=== PATIENT | female | born 1950 | race Caucasian/White ===

== ENCOUNTER 2021-09-01 14:00 | Outpatient (CLI) | payer MEDICARE ==
--- NOTE | 2021-09-01 15:55 | DEXA Report ---
PROCEDURE: Dexa Spine and/or Hip INDICATIONS: POST MENOPAUSAL TECHNIQUE: Dual energy x-ray absorptiometry (DXA) was performed on a Unveil System. Regions measur ed are the AP Spine, femoral neck, and if needed forearm. COMPARISON: None. FINDINGS: Spine bone mineral density is 1.378, normal. Total left hip bone mineral density is 0.876, with a T score of -1.0. This corresponds to osteopenia. Left femoral neck bone mineral density is borderline normal, 0.98, with T score of -0.9. IMPRESSION: Osteopenia. Patients with diagnosis of osteoporosis or osteopenia should have regular bone mineral density assess ment. For those eligible for Medicare, routine testing is allowed once every 2 years. Testing frequ ency can be increased for patients who have rapidly progressing disease or for those who are receivin g medical therapy to restore bone mass. Reviewed by: Levi Esteves MD on 09/01/2021 3:54 PM PST Approved by: Levi Esteves MD on 09/01/2021 3:54 PM PST Station ID: [id number]
== END 2021-09-01 14:01 | disposition home or self-care (01) ==
LOC: DI 14:00
PROVIDERS: ATTEND Internal Medicine
DX: Z78.0 Asymptomatic menopausal state (principal); M85.88 Other specified disorders of bone density and structure, other site

== ENCOUNTER 2021-09-19 11:32 | Outpatient (CLI) | payer MEDICARE ==
[2021-09-19 15:42] LABS: ALBUMIN 3.8 g/dL (3.2-5.5); ALBUMIN/GLOBULIN RATIO 1.2 (1.0-2.2); BILIRUBIN,TOTAL 0.6 mg/dL (0.2-1.0); CALCIUM 9.5 mg/dL (8.5-10.3); CREATININE 1.3 mg/dL (0.4-1.0); TOTAL PROTEIN 6.9 g/dL (6.7-8.2)
[2021-09-19 15:57] LABS: THYROID STIMULATING HORMONE 0.92 uIU/mL (0.34-5.60)
[2021-09-19 20:05] LABS: ESTIMATED AVERAGE GLUCOSE 160 mg/dL (70-100); HEMOGLOBIN A1c% 7.2 % (4.27-6.07)
== END 2021-09-19 11:33 | disposition home or self-care (01) ==
LOC: LAB.S 11:32
PROVIDERS: ATTEND Internal Medicine
DX: E11.9 Type 2 diabetes mellitus without complications (principal); E03.9 Hypothyroidism, unspecified
CPT/HCPCS: 36415; 80053; 83036; 84443

== ENCOUNTER 2022-04-16 11:21 | Outpatient (CLI) | payer MEDICARE ==
[2022-04-16 14:37] LABS: BASOPHILS # (AUTO) 0.1 10^3/uL (0.0-0.1); BASOPHILS % (AUTO) 0.7 %; EOSINOPHILS # (AUTO) 0.2 10^3/uL (0.0-0.7); EOSINOPHILS % (AUTO) 1.7 %; HCT - HEMATOCRIT 40.4 % (37.0-47.0); HGB - HEMOGLOBIN 12.9 g/dL (12.0-16.0); LYMPHOCYTES # (AUTO) 2.8 10^3/uL (1.5-3.5); LYMPHOCYTES % (AUTO) 29.4 %; MEAN CORPUSCULAR HEMOGLOBIN 27.7 pg (27.0-31.0); MEAN CORPUSCULAR HGB CONC 31.9 g/dL (32.0-36.0); MEAN CORPUSCULAR VOLUME 86.7 fL (81.0-99.0); MONOCYTES # (AUTO) 0.6 10^3/uL (0.0-1.0); NEUTROPHILS # (AUTO) 5.9 10^3/uL (1.5-6.6); NEUTROPHILS % (AUTO) 61.7 %; PLT - PLATELET COUNT 324 10^3/uL (130-450); RED BLOOD COUNT 4.66 10^6/uL (4.20-5.40); RED CELL DISTRIBUTION WIDTH 15.9 % (12.0-15.0); WHITE BLOOD COUNT 9.6 x10^3/uL (4.8-10.8)
[2022-04-16 15:07] LABS: ALBUMIN 3.8 g/dL (3.2-5.5); ALBUMIN/GLOBULIN RATIO 1.3 (1.0-2.2); ALKALINE PHOSPHATASE 66 IU/L (42-121); ALT ALANINE AMINOTRANSFERASE 13 IU/L (10-60); AST ASPARTATE AMINOTRANSFERASE 18 IU/L (10-42); BILIRUBIN,TOTAL 0.5 mg/dL (0.2-1.0); BUN - BLOOD UREA NITROGEN 18 mg/dL (6-20); CALCIUM 9.4 mg/dL (8.5-10.3); CARBON DIOXIDE - CO2 25 mmol/L (21-32); CHLORIDE 105 mmol/L (101-111); CHOL/HDL RATIO 2.4 (<4.4); CHOLESTEROL 162 mg/dL; CREATININE 1.4 mg/dL (0.4-1.0); GFR - MDRD 37 (>89); GLUCOSE 207 mg/dL (70-100); HDL CHOLESTEROL 68 mg/dL; LDL CHOLESTEROL,CALCULATED 54 mg/dL; LDL/HDL RATIO 0.8 (<4.4); POTASSIUM 4.2 mmol/L (3.5-5.0); SODIUM 140 mmol/L (135-145); TOTAL PROTEIN 6.8 g/dL (6.7-8.2); TRIGLYCERIDES 198 mg/dL; VLDL CHOLESTEROL 40 mg/dL
[2022-04-16 15:13] LABS: THYROID STIMULATING HORMONE 0.49 uIU/mL (0.34-5.60)
[2022-04-16 20:03] LABS: ESTIMATED AVERAGE GLUCOSE 169 mg/dL (70-100); HEMOGLOBIN A1c% 7.5 % (4.27-6.07)
== END 2022-04-16 11:22 | disposition home or self-care (01) ==
LOC: LAB.S 11:21
PROVIDERS: ATTEND Registered Nurse
DX: E78.5 Hyperlipidemia, unspecified (principal); Z79.899 Other long term (current) drug therapy; E11.9 Type 2 diabetes mellitus without complications; E03.9 Hypothyroidism, unspecified
CPT/HCPCS: 36415; 80053; 80061; 82043; 82570; 83036; 83721; 84443; 85025

== ENCOUNTER 2022-04-26 08:00 | Outpatient (CLI) | payer MEDICARE ==
[2022-04-26 20:08] LABS: CREATININE,URINE 110.6 mg/dL; MICROALBUM/CREATININE RATIO,UR 153.7 ug/mg (<30.0)
== END 2022-04-26 23:59 | disposition home or self-care (01) ==
LOC: LAB 08:00
PROVIDERS: ATTEND Registered Nurse
DX: E11.9 Type 2 diabetes mellitus without complications (principal)
CPT/HCPCS: 82043; 82570

== ENCOUNTER 2022-06-28 09:26 | Day surgery (SDC) | payer MEDICARE ==
[~2022-06-28 09:26] MED LIST: CYCLOPENTOLATE 1% OPHTH DROPS 2 ML ONE; KETOROLAC 0.45% OPHTH DROPS ONE; PHENYLEPHRINE 2.5% OPHTH 2 ML DROPS ONE; PROPARACAINE 0.5% OPHTH DROPS 15 ML ONE
[2022-06-28] MEDS ORDERED: LACTATED RINGERS 1,000 ML IV ONE ×2 (10:07→11:22)
--- NOTE | 2022-06-28 10:25 | ANESTHESIA ---
Pre-Anesthesia VS, & Labs - Diagnosis LEFT CATARACT - Procedure LEFT CATARACT EXTRACTION; LENS IMPLANT Vital Signs: Temp Pulse Resp BP Pulse Ox O2 Flow Rate 36.6 C 94 22 154/98 H 100 06/28/22 10:02 06/28/22 10:02 06/28/22 10:02 06/28/22 10:02 06/28/22 10:02 Height: 5 ft Weight (kg): 103 kg Body Mass Index: 44.3 BMI Classification: Morbidly Obese - NPO >8 hours - Is Patient ?: No - Lab Results Current Lab Results: Laboratory Tests 06/28/22 10:17: POC Whole Bld Glucose 191 H Home Medications and Allergies Home Medications: Ambulatory Orders Bupropion HCl [Wellbutrin Xl] 300 mg PO DAILY 06/21/22 Cholecalciferol [Vitamin D3] 50 mcg PO DAILY 06/21/22 Cyanocobalamin (Vitamin B-12) [Vitamin B-12] 1,000 mcg PO DAILY 06/21/22 Cyclobenzaprine [Flexeril] 10 mg PO TID PRN 06/21/22 Escitalopram [Lexapro] 10 mg PO DAILY 06/21/22 Hydrocodone/Acetaminophen [Hydrocodone-Acetamin 10-325 mg] 1 each PO DAILY PRN 06/21/22 Levothyroxine [Synthroid] 125 mcg PO QDAC 06/21/22 Melatonin/Pyridoxine [Melatonin 5 mg Tablet] 2.5 mg PO QPM PRN 06/21/22 Metformin HCl 1,000 mg PO DAILY 06/21/22 Pantoprazole Sodium 40 mg PO DAILY 06/21/22 Potassium Chloride [Klor-Con 10] 2 tab PO DAILY 06/21/22 Semaglutide [Ozempic] 1 mg SQ OAW 06/21/22 Simvastatin [Zocor] 40 mg PO DAILY 06/21/22 Zolpidem [Ambien] 5 mg PO HS PRN 06/21/22 miSOPROStoL [Cytotec] 100 mcg PO DAILY 06/21/22 Bupropion HCl [Wellbutrin Xl] 300 mg PO DAILY 06/21/22 Cholecalciferol [Vitamin D3] 50 mcg PO DAILY 06/21/22 Cyanocobalamin (Vitamin B-12) [Vitamin B-12] 1,000 mcg PO DAILY 06/21/22 Cyclobenzaprine [Flexeril] 10 mg PO TID PRN 06/21/22 Escitalopram [Lexapro] 10 mg PO DAILY 06/21/22 Hydrocodone/Acetaminophen [Hydrocodone-Acetamin 10-325 mg] 1 each PO DAILY PRN 06/21/22 Levothyroxine [Synthroid] 125 mcg PO QDAC 06/21/22 Melatonin/Pyridoxine [Melatonin 5 mg Tablet] 2.5 mg PO QPM PRN 06/21/22 Metformin HCl 1,000 mg PO DAILY 06/21/22 Pantoprazole Sodium 40 mg PO DAILY 06/21/22 Potassium Chloride [Klor-Con 10] 2 tab PO DAILY 06/21/22 Semaglutide [Ozempic] 1 mg SQ OAW 06/21/22 Simvastatin [Zocor] 40 mg PO DAILY 06/21/22 Zolpidem [Ambien] 5 mg PO HS PRN 06/21/22 miSOPROStoL [Cytotec] 100 mcg PO DAILY 06/21/22 Allergies/Adverse Reactions: Allergies Allergy/AdvReac Type Severity Reaction Status Date / Time No Known Drug Allergies Allergy Verified 06/21/22 15:12 Anes History & Medical History - Anesthetic History Anesthesia Complications: reports: No previous complications Family history of Anesthesia Complications: Denies Family history of Malignant Hyperthermia: Denies - Medical History Cardiovascular: reports: Hypertension, High cholesterol Pulmonary: reports: None Gastrointestinal: reports: GERD Urinary: reports: Kidney stones, Other (DIALSYSIS DURING HOSPITALIZATION IN 2007- RESOLVED. NO CRRENT DIAYLSIS REQUIRED) Neuro: reports: None Musculoskeletal: reports: Osteoarthritis Endocrine/Autoimmune: reports: Type 2 diabetes, HyPOthyroidism Blood Disorders: reports: None Skin: reports: None Smoking Status: Never smoker Psychosocial: reports: No issues indicated History of Cancer?: No - Surgical History General: reports: Cholecystectomy Eyes Ears Nose Throat (EENT): reports: Tonsil/Adenoidectomy Gynecologic: reports: Hysterectomy Exam General: Alert, Oriented x3, Cooperative, No acute distress Dental: Dentures full Upper, Dentures full Lower Mouth Openin Fingerbreadth Neck Mobility: Normal Mallampati classification: II Thyromental Distance: less than 4 cm Respiratory: Lungs clear, Normal breath sounds, No respiratory distress, No accessory muscle use Cardiovascular: Regular rate, Normal S1, Normal S2, No murmurs Mental/Cognitive Status: Alert/Oriented X3 (morbidly obeses), Normal for patient Cognitive Status: Within normal limits Plan Anesthesia Type: MAC Consent for Procedure(s) Verified and Reviewed: Yes Code Status: Attempt Resuscitation ASA classification: 2-Mild systemic disease Is this case an emergency?: No
[2022-06-28] MEDS ORDERED: BRIMONIDINE 0.2% OPHTH DROPS 5 ML OPTH ONE (11:11)
[2022-06-28] MEDS ORDERED: TIMOLOL 0.5% OPHTH DROPS OPTH ONE (11:11)
[2022-06-28] MEDS ORDERED: BSS/LIDOCAINE/EPINEPHRINE 1 ML SYRINGE IO ONE (11:11)
[2022-06-28] MEDS ORDERED: EPINEPHrine 1 MG/ML AMP IR ONE (11:11)
[2022-06-28] MEDS ORDERED: PROPARACAINE 0.5% OPHTH DROPS 15 ML EACHEYE ONE (11:12)
[2022-06-28] MEDS ORDERED: TRIAMCIN/MOXIFLOX OPHTHALMIC 0.6 ML VIAL IO ONE ×2 (11:12→13:53)
[2022-06-28] MEDS ORDERED: VANCOMYCIN OPHTH (TOPICAL) 10 MG/ML SYRINGE TOP ONE (11:12)
[2022-06-28 11:30] VITALS: BP 139/86
--- NOTE | 2022-06-28 12:03 | OPERATIVE REPORT ---
Operative Report - Other Other Information/Narrative: Date of Surgery: 06/28/22 Preop Dx: Visually significant cataract left eye. This was the first cataract surgery. Postop Dx: Same Procedure: Phacoemulsification with posterior chamber intraocular lens implant left eye Surgeon: Dr. Kaz Aguillon Anesthesia: Monitored anesthesia care Complications: None Operative Indications: This is a 71-year-old F with progressive vision loss in the left eye due to 4+ nuclear sclerotic and 3+ cortical cataract. Best corrected visual acuity was 20/40 with glare to 20/80 vision in the left eye. Indications for surgery were: - Overall decrease in vision - Difficulty driving in low light or at night - Difficulty driving at night because of headlights from other vehicles The patient was consented at length concerning the risks and benefits of cataract surgery after which the patient expressed a desire to proceed with surgery. Operative Procedure: The patient was taken into OR#3 and placed under monitored anesthesia care. A surgical time-out was conducted confirming correct patient, correct procedure, and correct surgical site. The patient was given topical anesthesia and then prepped and draped in the usual sterile fashion. The eye was entered at the 6 and 3 oclock positions. Intracameral Shugarcaine was injected into the anterior chamber followed by a dispersive viscoelastic. A continuous-tear curvilinear capsulorhexis was performed. The nucleus was hydrodissected and phacoemulsified. The cortex was evacuated using automated infusion and aspiration. A cohesive viscoelastic was injected into the capsular bag and a 22.5 diopter intraocular lens was inserted into the bag. Infusion and aspiration were used to evacuate the viscoelastic materials from the eye. The wounds were hydrated and the eye inflated to physiologic pressure using balanced salt solution. Approximately 0.25ml of a mixture of triamcinolone and moxifloxacin was injected trans-sclerally into the vitreous in the inferotemporal quadrant using a 30 gauge cannula. An additional 0.55ml of a mixture of triamcinolone and moxifloxacin was injected subconjunctivally in the superior quadrant for infection and inflammation prophylaxis. Wound integrity was checked with Weck-Paula sponges. The patient was taken from the operating room in good condition and given post-op instructions.
[2022-06-28] MEDS ORDERED: TIMOLOL 0.5% OPHTH DROPS ONE (13:53)
[2022-06-28] MEDS ORDERED: EPINEPHrine 1 MG/ML AMP ONE (13:53)
[2022-06-28] MEDS ORDERED: BSS/LIDOCAINE/EPINEPHRINE 1 ML VIAL ONE (13:53)
[2022-06-28] MEDS ORDERED: BRIMONIDINE 0.2% OPHTH DROPS 5 ML ONE (13:53)
[2022-06-28] MEDS ORDERED: VANCOMYCIN OPHTH (TOPICAL) 10 MG/ML SYRINGE ONE (13:53)
--- NOTE | 2022-06-28 14:00 | ANESTHESIA POST OP EVALUATION ---
Anesthesia Post Eval - Post Anesthesia Eval Vitals: Last Vital Signs Temp 36.8 C 06/28/22 11:23 Pulse 91 06/28/22 11:29 Resp 16 06/28/22 11:29 BP 139/86 H 06/28/22 11:29 Pulse Ox 98 06/28/22 11:29 O2 Flow Rate CV Function Including HR & BP: Stable Pain Control: Satisfactory Nausea & Vomiting: Negative Mental Status: Baseline Respiratory Status: Airway Patent Hydration Status: Satisfactory Anesthesia Complications: None
== END 2022-06-28 09:27 | disposition home or self-care (01) ==
LOC: SDS 09:26
PROVIDERS: ATTEND Ophthalmology
DX: E11.36 Type 2 diabetes mellitus with diabetic cataract (principal); H25.812 Combined forms of age-related cataract, left eye; Z79.85 Long-term (current) use of injectable non-insulin antidiabetic drugs; Z79.84 Long term (current) use of oral hypoglycemic drugs; E03.9 Hypothyroidism, unspecified; F41.9 Anxiety disorder, unspecified; E66.01 Morbid (severe) obesity due to excess calories; Z68.41 Body mass index [BMI] 40.0-44.9, adult
CPT/HCPCS: 66984; A9270; J3490; J7120

== ENCOUNTER 2022-10-09 12:34 | Outpatient (CLI) | payer MEDICARE ==
[2022-10-09 14:42] LABS: CALCIUM 9.6 mg/dL (8.5-10.3); CREATININE 1.6 mg/dL (0.4-1.0); POTASSIUM 5.3 mmol/L (3.5-5.0)
[2022-10-09 14:56] LABS: ESTIMATED AVERAGE GLUCOSE 189 mg/dL (70-100); HEMOGLOBIN A1c% 8.2 % (4.27-6.07)
== END 2022-10-09 12:35 | disposition home or self-care (01) ==
LOC: LAB.S 12:34
PROVIDERS: ATTEND Registered Nurse
DX: E11.9 Type 2 diabetes mellitus without complications (principal)
CPT/HCPCS: 36415; 80048; 83036

== ENCOUNTER 2022-11-19 11:26 | Outpatient (CLI) | payer MEDICARE ==
--- NOTE | 2022-11-19 20:27 | XRAY Report ---
PROCEDURE: Knee 2 View LT INDICATIONS: OSTEOARTHRITIS OF KNEE TECHNIQUE: 2 views of the left knee(s) were acquired. COMPARISON: None. FINDINGS: Bones: No fractures or dislocations. No suspicious bony lesions. Definite osteophytes and possibl e narrowing of joint space. These changes affect the tibiofemoral compartments. Degenerative changes also likely present of the patellofemoral compartment but not well evaluated on included views. Soft tissues: Mild knee joint effusion. Vascular calcifications are present. IMPRESSION: No acute bony abnormality. At least bicompartmental degenerative changes, likely tricompartmental. Kellgren-Denis scale of os teoarthritis: Grade 1-2: mild osteoarthritis. Reviewed by: Surinder Tay MD on 11/19/2022 8:25 PM PDT Approved by: Surinder Tay MD on 11/19/2022 8:25 PM PDT Station ID: [id number]
--- NOTE | 2022-11-19 20:29 | XRAY Report ---
PROCEDURE: Knee 2 View RT INDICATIONS: OSTEOARTHRITIS OF KNEE TECHNIQUE: 2 views of the right knee(s) were acquired. COMPARISON: None. FINDINGS: Bones: No acute fractures or dislocations. Corticated bony fragment adjacent to the medial femoral c ondyle may represent sequela of prior fracture or MCL injury. Large osteophytes, marked narrowing o f joint space, severe sclerosis and definite deformity of bone. This primarily affects the medial com partment of the knee, however at least moderate degenerative changes of the lateral compartment also demonstrated and patellofemoral compartment degenerative changes are present but not well evaluated o n included views. Soft tissues: No knee joint effusion. Vascular calcifications are present. IMPRESSION: No acute bony abnormality. Tricompartmental degenerative changes of the knee. Degenerative changes are worst at the medial jyoti rtment. Kellgren-Denis scale of osteoarthritis: Grade 4: severe osteoarthritis. Reviewed by: Surinder Tay MD on 11/19/2022 8:28 PM PDT Approved by: Surinder Tay MD on 11/19/2022 8:28 PM PDT Station ID: [id number]
== END 2022-11-19 11:27 | disposition home or self-care (01) ==
LOC: DI.S 11:26
PROVIDERS: ATTEND Physician Assistant
DX: M17.0 Bilateral primary osteoarthritis of knee (principal)

== ENCOUNTER 2022-11-27 12:54 | Outpatient (CLI) | payer MEDICARE ==
--- NOTE | 2022-11-28 10:53 | Mammography Report ---
BILATERAL DIGITAL SCREENING MAMMOGRAM 3D/2D: 11/27/2022 CLINICAL: Routine screening. Family history of breast cancer. No prior exams were available for comparison. There are scattered areas of fibroglandular density in both breasts (category b / 25%-50% glandular t issue). There is a 0.7 cm irregular equal density focal asymmetry in the left breast at 2 o'clock middle dept h. There is architectural distortion associated with the focal asymmetry. No other significant masses, calcifications, or other findings are seen in either breast. IMPRESSION: INCOMPLETE: NEEDS ADDITIONAL IMAGING EVALUATION The 0.7 cm irregular equal density focal asymmetry in the left breast is indeterminate. Additional v iews with possible ultrasound are recommended. Based on the Tyrer Cuzick model (a risk assessment model) the patients lifetime risk is 4.0% and her 10 year risk is 2.8%. According to the ACR, ACS, and NCCN guidelines, an annual breast MRI exam angle g with mammogram is recommended if the patients lifetime risk is 20% or greater. This exam was interpreted at Station ID: [id number]. NOTE: For mammograms, a report in lay terms will be sent to the patient. Approximately 15% of breast malignancies will not be visualized mammographically. In the management of a palpable breast mass, a negative mammogram must not discourage biopsy of a clinically suspicious lesion. Electronically Signed By: Rigoberto Prado M.D. aty/:11/27/2022 14:24:03 ACR BI-RADS Category 0: Incomplete 3340F PARENCHYMAL PATTERN: (A) - The breast(s) demonstrate(s) scattered fibroglandular densities. BI-RADS CATEGORY: (0) - 0 Mammo and [place] [id number] Immediate follow-up LATERALITY: (L)
== END 2022-11-27 12:55 | disposition home or self-care (01) ==
LOC: DI.S 12:54
PROVIDERS: ATTEND Registered Nurse
DX: Z12.31 Encounter for screening mammogram for malignant neoplasm of breast (principal); R92.8 Other abnormal and inconclusive findings on diagnostic imaging of breast; Z80.3 Family history of malignant neoplasm of breast

== ENCOUNTER 2022-12-04 11:48 | Outpatient (CLI) | payer MEDICARE ==
[2022-12-04 14:23] LABS: BASOPHILS # (AUTO) 0.1 10^3/uL (0.0-0.1); BASOPHILS % (AUTO) 0.9 %; EOSINOPHILS # (AUTO) 0.2 10^3/uL (0.0-0.7); EOSINOPHILS % (AUTO) 1.5 %; HCT - HEMATOCRIT 39.8 % (37.0-47.0); HGB - HEMOGLOBIN 12.1 g/dL (12.0-16.0); LYMPHOCYTES # (AUTO) 3.1 10^3/uL (1.5-3.5); LYMPHOCYTES % (AUTO) 31.4 %; MEAN CORPUSCULAR HEMOGLOBIN 27.4 pg (27.0-31.0); MEAN CORPUSCULAR HGB CONC 30.4 g/dL (32.0-36.0); MONOCYTES # (AUTO) 0.8 10^3/uL (0.0-1.0); MONOCYTES % (AUTO) 7.8 %; NEUTROPHILS # (AUTO) 5.7 10^3/uL (1.5-6.6); NEUTROPHILS % (AUTO) 57.6 %; PLT - PLATELET COUNT 321 10^3/uL (130-450); RED BLOOD COUNT 4.42 10^6/uL (4.20-5.40); RED CELL DISTRIBUTION WIDTH 15.2 % (12.0-15.0); WHITE BLOOD COUNT 9.8 x10^3/uL (4.8-10.8)
== END 2022-12-04 11:49 | disposition home or self-care (01) ==
LOC: LAB.S 11:48
PROVIDERS: ATTEND Internal Medicine Nephrology
DX: D70.9 Neutropenia, unspecified (principal); E83.30 Disorder of phosphorus metabolism, unspecified; N25.81 Secondary hyperparathyroidism of renal origin; R80.9 Proteinuria, unspecified; D64.9 Anemia, unspecified; D63.1 Anemia in chronic kidney disease
CPT/HCPCS: 36415; 82570; 82607; 83970; 84100; 84156; 85025

== ENCOUNTER 2023-01-17 12:18 | Outpatient (CLI) | payer MEDICARE ==
--- NOTE | 2023-01-18 09:45 | Mammography Report ---
UNILATERAL LEFT DIGITAL DIAGNOSTIC MAMMOGRAM 3D/2D: 01/17/2023 CLINICAL: Patient returns today to evaluate a focal asymmetry in the left breast. Comparison is made to exams dated: 05/09/2020 mammogram, 06/27/2018 mammogram, and 06/25/2017 mammogra m - [place]. There are scattered areas of fibroglandular density in the left breast (category b / 25%-50% glandula r tissue). There is a 0.7 cm irregular equal density focal asymmetry in the left breast at 2 o'clock middle dept h. There is architectural distortion associated with the focal asymmetry. No other significant masses or calcifications are seen in the breast. IMPRESSION: INCOMPLETE: NEEDS ADDITIONAL IMAGING EVALUATION The 0.7 cm irregular equal density focal asymmetry in the left breast is indeterminate. A targeted ultrasound is recommended and will immediately follow. Based on the Tyrer Cuzick model (a risk assessment model) the patients lifetime risk is 3.8% and her 10 year risk is 2.8%. According to the ACR, ACS, and NCCN guidelines, an annual breast MRI exam angle g with mammogram is recommended if the patients lifetime risk is 20% or greater. This exam was interpreted at Station ID: [id number]. NOTE: For mammograms, a report in lay terms will be sent to the patient. Approximately 15% of breast malignancies will not be visualized mammographically. In the management of a palpable breast mass, a negative mammogram must not discourage biopsy of a clinically suspicious lesion. Electronically Signed By: Don Smith M.D. slc/:01/17/2023 13:32:45 ACR BI-RADS Category 0: Incomplete 3340F PARENCHYMAL PATTERN: (A) - The breast(s) demonstrate(s) scattered fibroglandular densities. BI-RADS CATEGORY: (0) - 0 Ultrasound [id number] Immediate follow-up LATERALITY: (B)
--- NOTE | 2023-01-18 09:45 | Ultrasound Report ---
LIMITED ULTRASOUND OF LEFT BREAST AND AXILLA: 01/17/2023 CLINICAL: Patient returns today to evaluate a focal asymmetry in the left breast. Comparison is made to exams dated: 01/17/2023 mammogram, 11/27/2022 mammogram - [facility], 05/09/2020 mammogram, 06/27/2018 mammogram, 06/28/2017 mammogram, and 06/25/2017 mammogram - [facility]. Color flow and real-time ultrasound of the left breast 2 o'clock, and axilla regions were performed. Bautista scale images of the real-time examination were reviewed. There is a 0.7 cm x 0.6 cm x 0.5 cm irregular mass with a spiculated margin in the left breast at 2 o 'clock middle depth 12 cm from the nipple. This irregular mass is hypoechoic with posterior acoustic shadowing. This correlates with mammography findings. Color flow imaging demonstrates that there i s an adjacent vascularity. No significant abnormalities were seen sonographically in the left axilla. IMPRESSION: SUSPICIOUS OF MALIGNANCY The 0.7 cm x 0.6 cm x 0.5 cm irregular mass in the left breast is at a high suspicion for malignancy. An ultrasound guided biopsy is recommended. No enlarged left axillary lymph nodes. Exam findings were discussed with the patient by Dr. Tay. This exam was interpreted at Station ID: [id number]. Electronically Signed By: Don Smith M.D. slc/:01/17/2023 13:46:46 Ultrasound BI-RADS: 4c High suspicion of malignancy BI-RADS CATEGORY: (4c) - High Susp Biopsy [id number] Immediate follow-up LATERALITY: (L)
== END 2023-01-17 12:19 | disposition home or self-care (01) ==
LOC: DI 12:18
PROVIDERS: ATTEND Registered Nurse
DX: N63.21 Unspecified lump in the left breast, upper outer quadrant (principal)

== ENCOUNTER 2023-02-04 11:37 | Outpatient (CLI) | payer MEDICARE ==
[2023-02-04] MEDS ORDERED: LIDOCAINE 1%-EPI 1:100000 20 ML MDV ONE (12:10)
[2023-02-04] MEDS ORDERED: LIDOCAINE-MPF 1% 5 ML VIAL ONE (12:10)
[2023-02-04] MEDS ORDERED: LIDOCAINE-MPF 1% 5 ML VIAL TD ONE (13:51)
[2023-02-04] MEDS ORDERED: LIDOCAINE 1%-EPI 1:100000 20 ML MDV SUBQ ONE (13:52)
--- NOTE | 2023-02-05 10:21 | Mammography Report ---
UNILATERAL LEFT DIGITAL DIAGNOSTIC MAMMOGRAM POST-PROCEDURE IMAGING FOR MARKER PLACEMENT: 02/04/2023 CLINICAL: Post left breast ultrasound biopsy clip placement imaging. Comparison is made to exams dated: 01/17/2023 mammogram, [facility] and 05/09/2020 [facility] - [place]. There are scattered areas of fibroglandular density in the left breast (category b / 25%-50% glandula r tissue). There is a marker clip in the appropriate position in the left breast at 2 o'clock middle depth. The re is a biopsy clip and architectural distortion associated with the focal asymmetry. IMPRESSION: POST PROCEDURE MAMMOGRAM FOR MARKER PLACEMENT There was a successful marker clip placement in the left breast middle depth. Based on the Tyrer Cuzick model (a risk assessment model) the patients lifetime risk is 3.8% and her 10 year risk is 2.8%. According to the ACR, ACS, and NCCN guidelines, an annual breast MRI exam angle g with mammogram is recommended if the patients lifetime risk is 20% or greater. This exam was interpreted at Station ID: [id number]. NOTE: For mammograms, a report in lay terms will be sent to the patient. Approximately 15% of breast malignancies will not be visualized mammographically. In the management of a palpable breast mass, a negative mammogram must not discourage biopsy of a clinically suspicious lesion. Electronically Signed By: Dr. Surinder Tay M.D. an/:02/04/2023 13:26:48 ACR BI-RADS Category Post-procedure mammogram for marker placement PARENCHYMAL PATTERN: (A) - The breast(s) demonstrate(s) scattered fibroglandular densities. BI-RADS CATEGORY: () - Unspecified - other recall n/a LATERALITY: (B)
--- NOTE | 2023-02-06 10:23 | Ultrasound Report ---
ULTRASOUND GUIDED BIOPSY LEFT BREAST USING VACUUM DEVICE WITH MARKING DEVICE INSERTED: 02/04/2023 CLINICAL: Left breast mass. PATIENT CONSENT: Risks (minor bleeding, infection, vasovagal reaction and repeat procedure), benefits and alternatives were explained to the patient and written informed consent was obtained. Correlation is made to exams dated: 01/17/2023 ultrasound, 01/17/2023 mammogram, 11/27/2022 mammogram - [facility], 05/09/2020 mammogram, 06/27/2018 mammogram, and 09/26/2017 ultrasound - [facility]. An ultrasound guided biopsy using real-time ultrasound was performed for the 0.7 cm x 0.6 cm x 0.5 cm mass located in the left breast at 2 o'clock middle depth 12 cm from the nipple. This was described on the previous ultrasound report. The skin was prepped in the usual manner. Local anesthetic was administered to the access site. The abnormality was approached from the lateral aspect. A biopsy n eedle was placed adjacent to the abnormality under ultrasound guidance. Once the needle was document ed to be in the correct location, three passes were made using the Mammotome biopsy system. A clip w as inserted into the biopsy cavity. The specimens were sent to the laboratory for pathological yakelin sis. IMPRESSION: ULTRASOUND GUIDED BIOPSY MALIGNANT Ultrasound guided biopsy of the 0.7 cm x 0.6 cm x 0.5 cm mass in the left breast at 2 o'clock middle depth 12 cm from the nipple was successful. Pathology indicates malignant invasive ductal carcinoma (ID). Pathology results are concordant with imaging findings. Oncologic/surgical followup recommend ed. This exam was interpreted at Station ID: [id number]. Dr. Surinder gonzalez,lc/:02/06/2023 10:03:31 BI-RADS CATEGORY: () - Unspecified - other recall n/a LATERALITY: (B)
== END 2023-02-04 11:38 | disposition home or self-care (01) ==
LOC: DI 11:37
PROVIDERS: ATTEND Registered Nurse
DX: C50.412 Malignant neoplasm of upper-outer quadrant of left female breast (principal); Z17.0 Estrogen receptor positive status [ER+]
CPT/HCPCS: 19083

== ENCOUNTER 2023-02-14 06:58 | Day surgery (SDC) | payer MEDICARE ==
[2023-02-14] MEDS: PROPARACAINE 0.5% OPHTH DROPS 15 ML ONE (07:22)
[2023-02-14] MEDS: KETOROLAC 0.45% OPHTH DROPS ONE (07:22)
[2023-02-14] MEDS: CYCLOPENTOLATE 1% OPHTH DROPS 2 ML ONE (07:22)
[2023-02-14] MEDS: PHENYLEPHRINE 2.5% OPHTH 2 ML DROPS ONE (07:23)
[2023-02-14] MEDS: LACTATED RINGERS 1,000 ML IV ONE ×2 (07:32→08:18)
[2023-02-14] MEDS ORDERED: fentaNYL 100 MCG/2 ML VIAL ONE (07:38)
[2023-02-14] MEDS ORDERED: MIDAZOLAM 2 MG/2 ML VIAL ONE (07:38)
[2023-02-14] MEDS ORDERED: EPINEPHrine 1 MG/ML AMP ONE (07:43)
[2023-02-14] MEDS ORDERED: BRIMONIDINE 0.2% OPHTH DROPS 5 ML ONE (07:43)
[2023-02-14] MEDS ORDERED: TIMOLOL 0.5% OPHTH DROPS ONE (07:43)
[2023-02-14] MEDS ORDERED: TRIAMCIN/MOXIFLOX OPHTHALMIC 0.6 ML VIAL IO ONE (07:43)
[2023-02-14] MEDS ORDERED: BSS/LIDOCAINE/EPINEPHRINE 1 ML VIAL ONE (07:44)
--- NOTE | 2023-02-14 07:49 | ANESTHESIA ---
Pre-Anesthesia VS, & Labs - Diagnosis right eye senile combined cataract - Procedure right eye cataract extraction with IOL implant Vital Signs: Temp Pulse Resp BP Pulse Ox O2 Flow Rate 36.8 C 87 16 158/68 H 95 0 02/14/23 07:14 02/14/23 07:14 02/14/23 07:14 02/14/23 07:14 02/14/23 07:14 02/14/23 07:14 Height: 5 ft Weight (kg): 105 kg Body Mass Index: 45.2 BMI Classification: Morbidly Obese - NPO >8 hours - Is Patient ?: No - Lab Results Current Lab Results: Laboratory Tests 02/14/23 07:30: POC Whole Bld Glucose 238 H Lab results reviewed: Yes Home Medications and Allergies Cholecalciferol [Vitamin D3] 50 mcg PO DAILY 06/21/22 Cyanocobalamin (Vitamin B-12) [Vitamin B-12] 1,000 mcg PO DAILY 06/21/22 Cyclobenzaprine [Flexeril] 10 mg PO TID PRN 06/21/22 Escitalopram [Lexapro] 10 mg PO DAILY 06/21/22 Hydrocodone/Acetaminophen [Hydrocodone-Acetamin 10-325 mg] 1 each PO DAILY PRN 06/21/22 Levothyroxine [Synthroid] 125 mcg PO QDAC 06/21/22 Melatonin/Pyridoxine [Melatonin 5 mg Tablet] 2.5 mg PO QPM PRN 06/21/22 Metformin HCl 1,000 mg PO DAILY 06/21/22 Pantoprazole Sodium 40 mg PO DAILY 06/21/22 Simvastatin [Zocor] 40 mg PO DAILY 06/21/22 Zolpidem [Ambien] 5 mg PO HS PRN 06/21/22 buPROPion HCL [Wellbutrin Xl] 300 mg PO DAILY 06/21/22 miSOPROStoL [Cytotec] 100 mcg PO DAILY 06/21/22 Allergies/Adverse Reactions: Allergies Allergy/AdvReac Type Severity Reaction Status Date / Time No Known Drug Allergies Allergy Verified 02/13/23 11:56 Anes History & Medical History - Anesthetic History Anesthesia Complications: reports: No previous complications - Medical History Cardiovascular: reports: Hypertension, High cholesterol Pulmonary: reports: None Gastrointestinal: reports: GERD Urinary: reports: Kidney stones, Other Neuro: reports: None Musculoskeletal: reports: Osteoarthritis Endocrine/Autoimmune: reports: Type 2 diabetes, HyPOthyroidism Blood Disorders: reports: None Skin: reports: None Smoking Status: Never smoker Psychosocial: reports: No issues indicated History of Cancer?: Yes (recent positive breast cancer biopsy) - Surgical History General: reports: Cholecystectomy Eyes Ears Nose Throat (EENT): reports: Tonsil/Adenoidectomy Gynecologic: reports: Hysterectomy Exam General: Alert, Oriented x3, Cooperative, No acute distress Dental: Dentures full Upper, Dentures full Lower Mouth Openin Fingerbreadth Neck Mobility: Normal Mallampati classification: II Thyromental Distance: 4-6 cm Mental/Cognitive Status: Alert/Oriented X3, Normal for patient Plan Anesthesia Type: MAC Consent for Procedure(s) Verified and Reviewed: Yes Code Status: Attempt Resuscitation ASA classification: 3-Severe systemic disease Is this case an emergency?: No
[2023-02-14] MEDS: TIMOLOL 0.5% OPHTH DROPS OPTH ONE (08:05)
[2023-02-14] MEDS: BRIMONIDINE 0.2% OPHTH DROPS 5 ML OPTH ONE (08:05)
[2023-02-14] MEDS: EPINEPHrine 1 MG/ML AMP IR ONE (08:05)
[2023-02-14] MEDS: BSS/LIDOCAINE/EPINEPHRINE 1 ML SYRINGE IO ONE (08:06)
[2023-02-14] MEDS: VANCOMYCIN OPHTH (TOPICAL) 10 MG/ML SYRINGE RIGHTEYE ONE (08:07)
[2023-02-14] MEDS: TRIAMCIN/MOXIFLOX OPHTHALMIC 0.6 ML VIAL IO ONE (08:07)
[2023-02-14] MEDS: PROPARACAINE 0.5% OPHTH DROPS 15 ML RIGHTEYE ONE (08:07)
--- NOTE | 2023-02-14 08:25 | OPERATIVE REPORT ---
Operative Report - Other Other Information/Narrative: Date of Surgery: 02/14/23 Preop Dx: Visually significant cataract right eye. Cataract surgery was performed in the left eye on . Postop Dx: Same Procedure: Phacoemulsification with posterior chamber intraocular lens implant right eye Surgeon: Dr. Kaz Aguillon Anesthesia: Monitored anesthesia care Complications: None Operative Indications: This is a 72-year-old F with progressive vision loss in the right eye due to 4+ nuclear sclerotic and 2-3+ cortical cataract. Best corrected visual acuity was 20/40 with glare to 20/100 vision in the right eye. Indications for surgery were: - Difficulty seeing words on a computer screen - Difficulty reading - Difficulty seeing words, closed captions, or game scores on TV - Difficulty driving in low light or at night - Difficulty driving at night because of headlights from other vehicles - Difficulty with glare or bright lights in any situation The patient was consented at length concerning the risks and benefits of cataract surgery after which the patient expressed a desire to proceed with surgery. Operative Procedure: The patient was taken into OR#3 and placed under monitored anesthesia care. A surgical time-out was conducted confirming correct patient, correct procedure, and correct surgical site. The patient was given topical anesthesia and then prepped and draped in the usual sterile fashion. The eye was entered at the 6 and 3 oclock positions. Intracameral Shugarcaine was injected into the anterior chamber followed by a dispersive viscoelastic. A continuous-tear curvilinear capsulorhexis was performed. The nucleus was hydrodissected and phacoemulsified. The cortex was evacuated using automated infusion and aspiration. A cohesive viscoelastic was injected into the capsular bag and a 23.5 diopter intraocular lens was inserted into the bag. Infusion and aspiration were used to evacuate the viscoelastic materials from the eye. The wounds were hydrated and the eye inflated to physiologic pressure using balanced salt solution. Approximately 0.25ml of a mixture of triamcinolone and moxifloxacin was injected trans-sclerally into the vitreous in the inferotemporal quadrant using a 30 gauge cannula. An additional 0.25ml of a mixture of triamcinolone and moxifloxacin was injected subconjunctivally in the superior quadrant for infection and inflammation prophylaxis. Wound integrity was checked with Weck-Paula sponges. The patient was taken from the operating room in good condition and given post-op instructions.
[2023-02-14 08:44] VITALS: BP 134/76
--- NOTE | 2023-02-14 09:29 | ANESTHESIA POST OP EVALUATION ---
Anesthesia Post Eval - Post Anesthesia Eval Vitals: Last Vital Signs Temp 36.4 C L 02/14/23 08:35 Pulse 76 02/14/23 08:35 Resp 16 02/14/23 08:35 BP 134/76 H 02/14/23 08:35 Pulse Ox 99 02/14/23 08:35 O2 Flow Rate 0 02/14/23 07:14 CV Function Including HR & BP: Stable Pain Control: Satisfactory Nausea & Vomiting: Negative Mental Status: Baseline Respiratory Status: Airway Patent Hydration Status: Satisfactory Anesthesia Complications: None
== END 2023-02-14 06:59 | disposition home or self-care (01) ==
LOC: SDS 06:58
PROVIDERS: ATTEND Ophthalmology
DX: E11.36 Type 2 diabetes mellitus with diabetic cataract (principal); H25.811 Combined forms of age-related cataract, right eye; Z79.84 Long term (current) use of oral hypoglycemic drugs; Z98.42 Cataract extraction status, left eye; E66.01 Morbid (severe) obesity due to excess calories; Z68.42 Body mass index [BMI] 45.0-49.9, adult; I10 Essential (primary) hypertension

== ENCOUNTER 2023-05-13 07:51 | Day surgery (SDC) | payer MEDICARE ==
[2023-05-13] MEDS ORDERED: LIDOCAINE-MPF 1% 5 ML VIAL ONE (08:12)
[2023-05-13] MEDS ORDERED: LIDOCAINE 1%-EPI 1:100000 50 ML VIAL ONE (08:12)
[2023-05-13] MEDS ORDERED: ceFAZolin 2 GM VIAL ONE (08:38)
[2023-05-13] MEDS ORDERED: ACETAMINOPHEN 500 MG TABLET PO ONE (08:38)
[2023-05-13] MEDS ORDERED: fentaNYL 100 MCG/2 ML VIAL ONE (09:32)
[2023-05-13] MEDS ORDERED: PROPOFOL 500 MG/50 ML 500 MG/50 ML VIAL ONE (09:32)
[2023-05-13] MEDS ORDERED: LACTATED RINGERS 1,000 ML IV ONE ×2 (10:26→11:48)
[2023-05-13] MEDS ORDERED: LIDOCAINE 1%-EPI 1:100000 20 ML MDV ONE (10:31)
[2023-05-13] MEDS ORDERED: BUPIVACAINE 0.5% PF 10 ML VIAL ONE (10:32)
[2023-05-13] MEDS ORDERED: SUCCINYLCHOLINE 200 MG/10 ML VIAL ONE (10:40)
[2023-05-13] MEDS ORDERED: PHENYLEPHRINE HCL 0.5 MG/5 ML AMPULE ONE ×2 (11:08→11:29)
[2023-05-13] MEDS ORDERED: ePHEDrine 50 MG/ML VIAL IVP ONE (11:08)
[2023-05-13] MEDS ORDERED: BUPIVACAINE 0.5% PF 10 ML VIAL SUBQ ONE (11:10)
[2023-05-13] MEDS ORDERED: LIDOCAINE 2%-EPI 1:100000 20 ML MDV SUBQ ONE (11:11)
[2023-05-13] MEDS ORDERED: HYDROmorphone 0.5 MG/0.5 ML SYRINGE IVP PRN ×2 (11:13→11:40)
[2023-05-13] MEDS ORDERED: ATROPINE ABBOJECT 1 MG/10 ML SYRINGE IVP PRN (11:13)
[2023-05-13] MEDS ORDERED: ONDANSETRON 4 MG/2 ML VIAL IVP PRN ×2 (11:13→11:40)
[2023-05-13] MEDS ORDERED: ePHEDrine 50 MG/ML VIAL IVP PRN (11:13)
[2023-05-13] MEDS ORDERED: NALOXONE 0.4 MG/ML VIAL IVP PRN (11:13)
[2023-05-13] MEDS ORDERED: fentaNYL 100 MCG/2 ML VIAL IVP PRN (11:13)
--- NOTE | 2023-05-13 11:13 | ANESTHESIA ---
Pre-Anesthesia VS, & Labs - Diagnosis L DCIS - Procedure L breast lumpectomy Vital Signs: Temp Pulse Resp BP Pulse Ox O2 Flow Rate 36.8 C 91 16 136/65 H 94 0 05/13/23 08:29 05/13/23 08:29 05/13/23 08:29 05/13/23 10:27 05/13/23 08:29 05/13/23 08:29 Height: 5 ft Weight (kg): 104.2 kg Body Mass Index: 44.9 BMI Classification: Morbidly Obese - NPO >8 hours - Is Patient ?: No - Lab Results Current Lab Results: Laboratory Tests 05/13/23 08:37: POC Whole Bld Glucose 207 H Lab results reviewed: Yes Home Medications and Allergies Home Medications: Ambulatory Orders Liraglutide [Victoza 2-Wali] 1.8 mg SUBQ DAILY 05/03/23 glipiZIDE [Glipizide ER] 2.5 mg PO DAILY 05/03/23 Cholecalciferol [Vitamin D3] 25 mcg PO DAILY 06/21/22 Cyanocobalamin (Vitamin B-12) [Vitamin B-12] 1,000 mcg PO DAILY 06/21/22 Cyclobenzaprine [Flexeril] 10 mg PO TID PRN 06/21/22 Escitalopram [Lexapro] 10 mg PO DAILY 06/21/22 Hydrocodone/Acetaminophen [Hydrocodone-Acetamin 10-325 mg] 1 each PO DAILY PRN 06/21/22 Levothyroxine [Synthroid] 125 mcg PO QDAC 06/21/22 Metformin HCl 1,000 mg PO DAILY 06/21/22 Pantoprazole Sodium 40 mg PO DAILY 06/21/22 Simvastatin [Zocor] 40 mg PO DAILY 06/21/22 Zolpidem [Ambien] 5 mg PO HS PRN 06/21/22 buPROPion HCL [Wellbutrin Xl] 300 mg PO DAILY 06/21/22 miSOPROStoL [Cytotec] 100 mcg PO DAILY 06/21/22 Lisinopril [Zestril] 20 mg PO DAILY 03/22/23 Liraglutide [Victoza 2-Wali] 1.8 mg SUBQ DAILY 05/03/23 glipiZIDE [Glipizide ER] 2.5 mg PO DAILY 05/03/23 Allergies/Adverse Reactions: Allergies Allergy/AdvReac Type Severity Reaction Status Date / Time No Known Drug Allergies Allergy Verified 02/13/23 11:56 Anes History & Medical History - Anesthetic History Anesthesia Complications: reports: No previous complications Family history of Anesthesia Complications: Denies Family history of Malignant Hyperthermia: Denies - Medical History Cardiovascular: reports: Hypertension, High cholesterol Pulmonary: reports: None Gastrointestinal: reports: GERD (w/c) Urinary: reports: Kidney stones Neuro: reports: None Musculoskeletal: reports: Osteoarthritis Endocrine/Autoimmune: reports: Type 2 diabetes, HyPOthyroidism Blood Disorders: reports: None Skin: reports: None Smoking Status: Never smoker Psychosocial: reports: No issues indicated - Surgical History General: reports: Cholecystectomy, Colonoscopy, EGD Eyes Ears Nose Throat (EENT): reports: Cataracts, Tonsil/Adenoidectomy Urologic: reports: Ureterolithotomy (stones) Gynecologic: reports: Hysterectomy, Oophrectomy Exam General: Alert, Oriented x3, Cooperative Dental: Dentures full Upper, Dentures full Lower Mouth Openin Fingerbreadth Neck Mobility: Normal Mallampati classification: II Thyromental Distance: 4-6 cm Respiratory: Lungs clear Cardiovascular: Regular rate Plan Anesthesia Type: General Consent for Procedure(s) Verified and Reviewed: Yes Code Status: Attempt Resuscitation ASA classification: 3-Severe systemic disease Is this case an emergency?: No
[2023-05-13] MEDS ORDERED: DEXAMETHASONE 4 MG/ML VIAL ONE (11:27)
[2023-05-13] MEDS ORDERED: oxyCODONE 5 MG TABLET PO PRN (11:40)
[2023-05-13] MEDS ORDERED: IBUPROFEN 400 MG TABLET PO PRN (11:40)
[2023-05-13] MEDS ORDERED: ACETAMINOPHEN 500 MG TABLET PO PRN (11:40)
--- NOTE | 2023-05-13 11:45 | OPERATIVE REPORT ---
Operative Report - General Procedure Date: 05/13/23 Planned Procedure: Left breast, wire localized lumpectomy Pre-Op Diagnosis: Invasive ductal carcinoma, left breast Procedure Performed: Left breast, wire localized lumpectomy Post Op Diagnosis: Invasive ductal carcinoma, left breast - Procedure Note Primary Surgeon: Dr. Niki Garcias Anesthesia Provider: Kaz Banuelos CRNA Anesthesia Technique: General LMA, Local Pathology: Left breast lumpectomy, oriented short superior, long lateral, double anterior Estimated Blood Loss (mL): 5 Indications: The patient had abnormal findings on her mammogram, and subsequent biopsy revealed invasive ductal carcinoma. The patient was seen and evaluated in the clinic. We discussed the risks, benefits, and alternatives of lumpectomy. As her lesion was not palpable, wire localization was necessary. We also did discussed and coordinated with medical oncology that a sentinel lymph node biopsy is unlikely to change the course of her treatment, and recommended against any axillary staging in the surgical setting. We discussed the risks, benefits, and alternatives of lumpectomy including bleeding, infection, damage to surrounding structures, positive margins requiring reexcision, and the possible need for further surgeries or procedures. The patient voiced understanding, her questions were answered, and she wished to proceed. A consent was signed by the patient prior to surgery. Findings: 1. Biopsy clip in center of specimen. Complications: None - Other Other Information/Narrative: The patient was taken to the operating room and placed in the supine position. Preop antibiotics were given. ERAS medications were given. The patient was prepped and draped in the usual sterile fashion. A preop surgical timeout was performed. Attention was turned to the patient's left breast. An incision was made which incorporated the wire, following the patient's skin folds, at the 2 o'clock position, N + 8. Skin flaps were raised superiorly and inferiorly to the incision. The dissection was carried down to the thick part of the wire using electrocautery. At this point, serrated scissors were used to perform a lumpectomy staying approximately 1 cm away from the wire in all dimensions, and extended beyond the tip of the wire. The lumpectomy specimen was removed and oriented with suture on the back table, short superior, long lateral, double anterior. The specimen was inspected and there was a firm area within the middle of the specimen, that did not a clear plane close to any particular margin. The specimen was sent to mammography and the biopsy clip was confirmed to be within the specimen.The edges of the lumpectomy cavity were inspected and there were no palpable abnormalities. Hemos tasis was confirmed. The lumpectomy cavity was irrigated with warm normal saline. Clips were placed in the superior, inferior, medial, lateral, anterior, and posterior margins of the lumpectomy cavity. Given the small size and histology of the cancer, combined with the patient's age, no axillary staging was indicated at this time. The deep dermal tissues were closed with 3-0 Vicryl in an interrupted fashion. The skin was closed with 4-0 Monocryl in a running subcuticular fashion. The patient tolerated the procedure well. There were no complications.
[2023-05-13] MEDS ORDERED: LACTATED RINGERS 1,000 ML IV SCH (12:00)
[2023-05-13 12:37] VITALS: O2SAT 98
[2023-05-13 13:05] VITALS: BP 132/75
--- NOTE | 2023-05-13 13:36 | ANESTHESIA POST OP EVALUATION ---
Anesthesia Post Eval - Post Anesthesia Eval Vitals: Last Vital Signs Temp 36.1 C L 05/13/23 12:11 Pulse 68 05/13/23 12:45 Resp 14 05/13/23 12:45 BP 132/75 H 05/13/23 12:45 Pulse Ox 98 05/13/23 12:45 O2 Flow Rate 0 05/13/23 08:29
[2023-05-13] MEDS ORDERED: LIDOCAINE-MPF 1% 5 ML VIAL TD ONE (15:37)
--- NOTE | 2023-05-22 11:05 | Ultrasound Report ---
ULTRASOUND GUIDED WIRE LOCALIZATION LEFT BREAST: 05/13/2023 CLINICAL: Left breast wire localization. Correlation is made to exams dated: 05/13/2023 mammogram, 02/04/2023 ultrasound biopsy, 02/04/2023 [facility] mogram, 01/17/2023 ultrasound, and 01/17/2023 mammogram - [facility]. A wire localization using ultrasound guidance was performed for the indistinct irregular shaped mass located in the left breast at 2 o'clock middle depth. This was described on the previous mammography and ultrasound reports. The skin was prepped in the usual manner. Local anesthetic was administere d to the access site. The localization was approached from the lateral aspect. A J-hook wire was in serted into the targeted area under ultrasound guidance. A sterile dressing was applied to the acces s site. IMPRESSION: WIRE LOCALIZATION Wire localization for the mass in the left breast at 2 o'clock middle depth was successful. This exam was interpreted at Station ID: [id number]. Rafaela Su M.D. [facility]/:05/22/2023 10:22:04 Entry: - 05/22/2023 10:47:28 BI-RADS CATEGORY: () - Unspecified - other recall n/a LATERALITY: (B)
--- NOTE | 2023-05-22 11:05 | Mammography Report ---
UNILATERAL LEFT DIGITAL DIAGNOSTIC MAMMOGRAM WITH MEDIOLATERAL OBLIQUE POST-PROCEDURE IMAGING FOR MAR KER PLACEMENT: 05/13/2023 CLINICAL: Left breast marker placement. Comparison is made to exams dated: 02/04/2023 mammogram, 01/17/2023 mammogram, and 11/27/2022 mammogram - [facility]. There are scattered areas of fibroglandular density in the left breast (category b / 25%-50% glandula r tissue). There is a marker clip in the appropriate position in the left breast. IMPRESSION: POST PROCEDURE MAMMOGRAM FOR MARKER PLACEMENT There was a successful marker placement the left breast middle depth lateral region seen on the crani ocaudal view only. This exam was interpreted at Station ID: [id number]. NOTE: For mammograms, a report in lay terms will be sent to the patient. Approximately 15% of breast malignancies will not be visualized mammographically. In the management of a palpable breast mass, a negative mammogram must not discourage biopsy of a clinically suspicious lesion. Electronically Signed By: Rafaela Su M.D. [facility]/:05/22/2023 10:33:12 Entry: - 05/22/2023 10:33:12 ACR BI-RADS Category Post-procedure mammogram for marker placement PARENCHYMAL PATTERN: (A) - The breast(s) demonstrate(s) scattered fibroglandular densities. BI-RADS CATEGORY: () - Unspecified - other recall n/a LATERALITY: (B)
--- NOTE | 2023-05-22 11:05 | Mammography Report ---
SPECIMEN LEFT BREAST: 05/13/2023 CLINICAL: Left breast specimen. Correlation is made to exams dated: 05/13/2023 localization and 05/13/2023 mammogram - [facility]. Breast speciman contains localization wire tip, as well as biopsy clip. IMPRESSION: SPECIMEN The imaged specimen includes the abnormality. This exam was interpreted at Station ID: [id number]. Rafaela Su M.D. [facility]/:05/22/2023 10:40:43 Entry: - 05/22/2023 10:40:43 BI-RADS CATEGORY: () - Unspecified - other recall n/a LATERALITY: (B)
== END 2023-05-13 07:52 | disposition home or self-care (01) ==
LOC: DI 07:51
PROVIDERS: ATTEND Surgery
PROC: 0HBU0ZZ Excision of Left Breast, Open Approach (ICD-10-PCS; principal; 2023-05-13 12:15)
DX: C50.412 Malignant neoplasm of upper-outer quadrant of left female breast (principal); Z17.0 Estrogen receptor positive status [ER+]; M85.80 Other specified disorders of bone density and structure, unspecified site; E11.22 Type 2 diabetes mellitus with diabetic chronic kidney disease; I12.9 Hypertensive chronic kidney disease with stage 1 through stage 4 chronic kidney disease, or unspecified chronic kidney disease; N18.9 Chronic kidney disease, unspecified; Z87.891 Personal history of nicotine dependence; Z79.85 Long-term (current) use of injectable non-insulin antidiabetic drugs; Z79.84 Long term (current) use of oral hypoglycemic drugs; E66.01 Morbid (severe) obesity due to excess calories; Z68.42 Body mass index [BMI] 45.0-49.9, adult
CPT/HCPCS: 19285

== ENCOUNTER 2023-06-14 10:16 | Outpatient (CLI) | payer MEDICARE ==
[2023-06-14 14:57] LABS: BASOPHILS # (AUTO) 0.1 10^3/uL (0.0-0.1); BASOPHILS % (AUTO) 1.2 %; EOSINOPHILS # (AUTO) 0.2 10^3/uL (0.0-0.7); EOSINOPHILS % (AUTO) 2.6 %; HCT - HEMATOCRIT 37.8 % (37.0-47.0); HGB - HEMOGLOBIN 11.6 g/dL (12.0-16.0); LYMPHOCYTES # (AUTO) 2.7 10^3/uL (1.5-3.5); LYMPHOCYTES % (AUTO) 33.2 %; MEAN CORPUSCULAR HEMOGLOBIN 25.7 pg (27.0-31.0); MEAN CORPUSCULAR HGB CONC 30.7 g/dL (32.0-36.0); MEAN CORPUSCULAR VOLUME 83.8 fL (81.0-99.0); MEAN PLATELET VOLUME 9.7 fL (7.9-10.8); MONOCYTES # (AUTO) 0.6 10^3/uL (0.0-1.0); MONOCYTES % (AUTO) 7.1 %; NEUTROPHILS # (AUTO) 4.5 10^3/uL (1.5-6.6); NEUTROPHILS % (AUTO) 55.5 %; PLT - PLATELET COUNT 330 10^3/uL (130-450); RED BLOOD COUNT 4.51 10^6/uL (4.20-5.40)
[2023-06-14 15:18] LABS: ESTIMATED AVERAGE GLUCOSE 180 mg/dL (70-100); HEMOGLOBIN A1c% 7.9 % (4.27-6.07)
[2023-06-14 16:58] LABS: PHOSPHORUS 2.7 mg/dL (2.5-5.0)
[2023-06-14 16:58] LABS: ALBUMIN 3.9 g/dL (3.2-5.5); ALBUMIN/GLOBULIN RATIO 1.6 (1.0-2.2); ALKALINE PHOSPHATASE 56 IU/L (42-121); ALT ALANINE AMINOTRANSFERASE 6 IU/L (10-60); AST ASPARTATE AMINOTRANSFERASE 10 IU/L (10-42); BILIRUBIN,TOTAL 0.4 mg/dL (0.2-1.0); BUN - BLOOD UREA NITROGEN 14 mg/dL (6-20); CALCIUM 9.6 mg/dL (8.5-10.3); CARBON DIOXIDE - CO2 28 mmol/L (21-32); CHLORIDE 103 mmol/L (101-111); CHOL/HDL RATIO 2.6 (<4.4); CHOLESTEROL 157 mg/dL; CREATININE 1.5 mg/dL (0.6-1.3); GFR - MDRD 34 (>89); GLUCOSE 207 mg/dL (74-104); HDL CHOLESTEROL 60 mg/dL; LDL CHOLESTEROL,CALCULATED 55 mg/dL; LDL/HDL RATIO 0.9 (<4.4); SODIUM 142 mmol/L (135-145); TOTAL PROTEIN 6.3 g/dL (6.4-8.9); TRIGLYCERIDES 210 mg/dL (48-352); VLDL CHOLESTEROL 42 mg/dL
== END 2023-06-14 10:17 | disposition home or self-care (01) ==
LOC: LAB.S 10:16
PROVIDERS: ATTEND Registered Nurse
DX: E83.30 Disorder of phosphorus metabolism, unspecified (principal); R80.9 Proteinuria, unspecified; D70.9 Neutropenia, unspecified; D63.1 Anemia in chronic kidney disease; D51.9 Vitamin B12 deficiency anemia, unspecified; Z79.899 Other long term (current) drug therapy; E78.5 Hyperlipidemia, unspecified; E11.9 Type 2 diabetes mellitus without complications; E03.9 Hypothyroidism, unspecified
CPT/HCPCS: 36415; 80053; 80061; 82043; 82570; 82607; 83036; 83721; 84100; 84156; 84443; 85025

== ENCOUNTER 2023-06-18 08:00 | Outpatient (CLI) | payer MEDICARE ==
[2023-06-18 15:13] LABS: CREATININE,URINE 67.9 mg/dL; MICROALBUM/CREATININE RATIO,UR 98.7 ug/mg (<30.0); MICROALBUMIN,URINE 6.7 mg/dL
== END 2023-06-18 23:59 | disposition home or self-care (01) ==
LOC: LAB 08:00
PROVIDERS: ATTEND Registered Nurse
DX: E11.9 Type 2 diabetes mellitus without complications (principal)
CPT/HCPCS: 82043; 82570

== ENCOUNTER 2023-12-09 11:38 | Outpatient (CLI) | payer MEDICARE ==
[2023-12-09 15:40] LABS: CALCIUM 10.2 mg/dL (8.5-10.3); CREATININE 1.6 mg/dL (0.6-1.3); POTASSIUM 4.1 mmol/L (3.5-4.5)
[2023-12-09 21:56] LABS: ESTIMATED AVERAGE GLUCOSE 197 mg/dL (70-100); HEMOGLOBIN A1c% 8.5 % (4.27-6.07)
== END 2023-12-09 11:39 | disposition home or self-care (01) ==
LOC: LAB.S 11:38
PROVIDERS: ATTEND Registered Nurse
DX: E11.9 Type 2 diabetes mellitus without complications (principal)
CPT/HCPCS: 36415; 80048; 82043; 82570; 83036

== ENCOUNTER 2023-12-11 08:00 | Outpatient (CLI) | payer MEDICARE ==
[2023-12-11 14:44] LABS: CREATININE,URINE 64.6 mg/dL; MICROALBUM/CREATININE RATIO,UR 78.9 ug/mg (<30.0); MICROALBUMIN,URINE 5.1 mg/dL
== END 2023-12-11 23:59 | disposition home or self-care (01) ==
LOC: LAB.S 08:00
PROVIDERS: ATTEND Registered Nurse
DX: E11.9 Type 2 diabetes mellitus without complications (principal)
CPT/HCPCS: 82043; 82570

== ENCOUNTER 2024-01-17 13:17 | Outpatient (CLI) | payer MEDICARE ==
--- NOTE | 2024-01-20 10:56 | Mammography Report ---
BILATERAL DIGITAL DIAGNOSTIC MAMMOGRAM 3D/2D WITH SPOT COMPRESSION - LEFT BREAST POST LUMPECTOMY: 12/21 CLINICAL: Post left lumpectomy. Diffuse left breast pain. Due for bilateral exam. Comparison is made to exams dated: 05/13/2023 mammogram, 02/04/2023 mammogram, 05/13/2023 localizatio n, 05/13/2023 specimen, 01/17/2023 mammogram, and 11/27/2022 mammogram - [facility]. There are scattered areas of fibroglandular density in both breasts (category b / 25%-50% glandular t issue). The left breast has expected post-operative findings. No significant masses, calcifications, or other findings are seen in either breast. IMPRESSION: BENIGN There is no abnormality seen in the left breast to correspond with the area of clinical concern descr ibed as diffuse pain, however, recommend clinical follow up for persistent or worsening symptoms, or development of any clinically suspicious findings. There is no mammographic evidence of malignancy. A 1 year screening mammogram is recommended; however, shorter interval surveillance can be considered at the direction of treating oncologic/surgical team. Findings and recommendations were conveyed to the patient during today's evaluation. This exam was interpreted at Station ID: [id number]. NOTE: For mammograms, a report in lay terms will be sent to the patient. Approximately 15% of breast malignancies will not be visualized mammographically. In the management of a palpable breast mass, a negative mammogram must not discourage biopsy of a clinically suspicious lesion. Electronically Signed By: Rigoberto Prado M.D. [facility]/:01/17/2024 14:49:02 ACR BI-RADS Category 2: Benign Finding(s) 3342F PARENCHYMAL PATTERN: (A) - The breast(s) demonstrate(s) scattered fibroglandular densities. BI-RADS CATEGORY: (2) - 2 RECOMMENDATION: (ANNUAL) - Recommend routine annual screening mammography. [id number] 1 year screening LATERALITY: (B)
== END 2024-01-17 13:18 | disposition home or self-care (01) ==
LOC: DI 13:17
PROVIDERS: ATTEND Registered Nurse
DX: N64.4 Mastodynia (principal); R92.323 Mammographic fibroglandular density, bilateral breasts; Z98.890 Other specified postprocedural states